=== PATIENT | female | born 1980 | race Caucasian/White ===

== ENCOUNTER 2017-04-15 21:29 | Emergency (ER) | payer BC, MEDICAID ==
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
[2017-04-15] MEDS ORDERED: Acetaminophen/HYDROcodone 325-10 MG Tab PO ONE (22:15)
== END 2017-04-15 22:23 | disposition home or self-care (01) ==
LOC: DL.ED 21:29
DX: S60.211A Contusion of right wrist, initial encounter (principal); S60.221A Contusion of right hand, initial encounter; S60.811A Abrasion of right wrist, initial encounter; W23.0XXA Caught, crushed, jammed, or pinched between moving objects, initial encounter; Y93.89 Activity, other specified
CPT/HCPCS: 73130; 99283; A9270